=== PATIENT | female | born 1990 | race Caucasian/White ===

== ENCOUNTER 2016-10-03 15:03 | Inpatient (IN) | payer OTHER ==
[~2016-10-03] VITALS: Ht 154.9 cm; Wt 111.9 kg
[2016-10-03 15:10] VITALS: Ht 154.9 cm; Wt 111.9 kg
[2016-10-03 15:18] VITALS: BP 138/87; PULSE 104; RESP 18
[2016-10-03] MEDS ORDERED: PRENAT PO (15:25)
[2016-10-03] MEDS ORDERED: FERR325C PO (15:25)
[2016-10-03] MEDS ORDERED: CALC600T5 PO (15:25)
[2016-10-03 16:35] LABS: ADD SCAN DIFF NO
[2016-10-03 16:38] LABS: BASOPHILS % 0.2 % (0.0-2.0); EOSINOPHILS # 0.1 10^3/ul (0.0-0.5); HEMATOCRIT 37.1 % (37.0-47.0); HEMOGLOBIN 12.4 g/dl (12.0-16.0); LYMPHOCYTES # 1.3 10^3/ul (0.8-2.9); LYMPHOCYTES % 14.3 % (15.0-51.0); MEAN CORPUSCULAR HEMOGLOBIN 27.4 pg (29.0-33.0); MEAN CORPUSCULAR HGB CONC 33.4 g/dl (32.0-37.0); MEAN CORPUSCULAR VOLUME 82.1 fl (82.0-101.0); MEAN PLATELET VOLUME 9.7 fl (7.4-10.4); MONOCYTE # 0.5 10^3/ul (0.3-0.9); MONOCYTES % 5.1 % (0.0-11.0); NEUTROPHIL # 7.1 10^3/ul (1.6-7.5); NEUTROPHILS % 79.1 % (39.0-77.0); PLATELET COUNT 329 10^3/UL (140-415); RED BLOOD COUNT 4.52 10^6/ul (4.20-5.40); RED CELL DISTRIBUTION WIDTH 15.3 % (11.5-14.5)
[2016-10-03 16:47] LABS: ALBUMIN 3.4 g/dl (3.3-4.9); POTASSIUM 4.4 mmol/L (3.5-5.1)
[2016-10-03 16:49] LABS: CREATININE 0.57 mg/dl (0.44-1.00)
[2016-10-03 16:50] LABS: ALBUMIN/GLOBULIN RATIO 0.91; TOTAL PROTEIN 7.1 g/dl (6.1-8.1); URIC ACID 4.7 mg/dl (3.1-7.9)
[2016-10-03 16:51] LABS: CALCIUM 8.8 mg/dl (8.4-10.2)
--- NOTE | 2016-10-03 16:57 | RADRPT ---
PROCEDURE: US OB biophysical profile. CLINICAL INDICATION: decreased movements, preeclampsia TECHNIQUE: Multiple sonographic images of the pelvis were obtained. The images were reviewed on a PACS workstation. COMPARISON: No prior studies are available for comparison. FINDINGS: There is a single viable intrauterine gestation. Cardiac activity is present with 152 beats per min [place]. There is a vertex presentation. The placenta is anterior. There is no evidence of placental abruption. There is a normal amount of amniotic fluid with an ALEXSANDRA = 10.0 cm. Biophysical profile: movement 2/2 tone 2/2. breathing 2/2 ALEXSANDRA 2/2 Total 03/03 RPTAT: AA . IMPRESSION: Normal biophysical profile. . .Desmond Arana MD, MD Date Time Electronically viewed and signed by .Desmond Arana MD, MD on 10/03/2016 16:56 .S/
--- NOTE | 2016-10-03 16:59 | RADRPT ---
PROCEDURE: US OB. CLINICAL INDICATION: Size and dates , preeclampsia TECHNIQUE: Multiple sonographic images of the pelvis and gravid uterus were obtained. The images were reviewed on a PACS workstation. COMPARISON: No prior studies are available for comparison. FINDINGS: There is a single viable intrauterine gestation. Cardiac activity is present with 150 beats per min [place]. There is a vertex presentation. The placenta is anterior. There is no evidence of placental abruption. There is a normal amount of amniotic fluid with an ALEXSANDRA = 10.0 cm. Measurements were made in order to determine age. The results are as follows: BPD =9.2 cm HC =32.7 cm AC =33.1 cm FL =7.3 cm Estimated gestational age of approximately 37 weeks and 2 days based on ultrasound measurements. Clinical age: 37 weeks and 4 days. The estimated date of delivery is 10/22/16, based on ultrasound measurements. The EFW = 3118 g, 47%, based on LMP age. RPTAT: AA IMPRESSION: Single viable intrauterine gestation of approximately 37 weeks and 2 days based on ultrasound measu rements. .Desmond Arana MD, Date Time Electronically viewed and signed by .Desmond Arana MD, on 10/03/2016 16:59 .S/
[2016-10-03 17:40] LABS: ADD UMIC YES; URINE BILIRUBIN (Dip) NEGATIVE (NEGATIVE); URINE BLOOD (Dip) NEGATIVE (NEGATIVE); URINE COLOR LT. YELLOW (YELLOW); URINE GLUCOSE (Dip) NEGATIVE (NEGATIVE); URINE KETONES (Dip) NEGATIVE (NEGATIVE); URINE LEUKOCYTE ESTERASE (Dip) TRACE (NEGATIVE); URINE NITRITE (Dip) NEGATIVE (NEGATIVE); URINE TOTAL PROTEIN (Dip) TRACE (NEGATIVE); URINE UROBILINOGEN (Dip) 0.2 E.U./dL (0.1-1.0)
--- NOTE | 2016-10-03 17:58 | HP ---
Date/Time of Note Date/Time of Note DATE: 10/03/16 TIME: 17:50 OB - History Hx of Present Free Text/Dictation admitted for observation of elevated BP in clinic and 8 lbs weight gain in 2 weeks denies headache , blurred vision and epigastric pain Last Menstrual Period: Jan 14, 2016 Estimated Due Date: Oct 20, 2016 : 3 Para: 0 Spontaneous : 2 Care: Limited Care Obstetrical Complications: Other (possible PIH ) Medical Complications: None Past Family/Social History * Past Medical, Surgical, Family and Obstetric Histories reviewed from chart. Blood Type: O+ Rubella: immune RPR/VDRL: Negative GBS Status: Unknown HBsAG: Negative OB Admission Exam Vital Signs Vital Signs Vital Signs Date Time Temp Pulse Resp B/P Pulse Ox O2 Delivery O2 Flow Rate FiO2 10/03/16 15:18 98.5 104 18 138/87 Room Air Physical Exam HEENT: WNL Heart: Rhythm Normal Lungs: Clear, Equal Abdomen: WNL Extremities: Normal Reflexes: Normal Cervical Dilatation: None Effacement: 0% Station: -3 Membranes: Intact Heart Rate: 140's Accelerations: Accelerations Present Decelerations: No Decelerations Varibility: Marked Contractions on Admission: 6-10 Minutes Apart Last 72 hours Lab Results CBC & BMP 10/03/16 16:20 Liver Function Test 10/03/16 16:20 Alanine Aminotransferase (ALT/SGPT) 27 Albumin 3.4 Alkaline Phosphatase 296 H Aspartate Amino Transf (AST/SGOT) 24 Direct Bilirubin 0.00 Total Protein 7.1 OB Assessment/Plan Other Assessment: possible PIH : patient had blood pressure of 150/90-100 in the clinic Other plan: consulted perinatologist: recommended to obtain 24 hour urine protein and observe BP LAINEY LANDIN MD Oct 03, 2016 17:58
[2016-10-03 17:59] LABS: BACTERIA,URINE MODERATE; SQUAMOUS EPITHELIAL CELL,UR MANY; URINE RBCS 0-2 /HPF (0)
[2016-10-03] MEDS: LACTATED RINGER'S 1,000 ML IV SCH (18:27)
--- NOTE | 2016-10-03 18:35 | TRIAGE ---
OB Triage Datetime Report Generated by CPN: 10/03/2016 18:34 Datetime: 10/03/2016 17:18 Labor Evaluation Frequency: 2-3 Monitor Mode: External Duration (sec)2399: 50-100 Quality: Moderate Pattern: Normal: <= 5 Contractions in 10 Minutes Resting Tone [place]: Relaxed Heart Rate FHR Baseline Rate: 135 Monitor Mode: External US FHR Baseline Changes: No Baseline Change Variability: Moderate 6-25 bpm Accelerations: 15X15 Decelerations: None Category: Category I Pain Assessment Pain Presence: Intermittent Pain Type: Contraction Pain Location: Abdomen Pain Relief Measures: Comfort Measures Pain Assessment Comments: Pt denies feeling pain with contractions, only pressure Datetime: 10/03/2016 16:15 Labor Evaluation Frequency: 1-3 Monitor Mode: External Duration (sec)2399: 50-100 Quality: Mild Pattern: Normal: <= 5 Contractions in 10 Minutes Resting Tone [place]: Relaxed Heart Rate FHR Baseline Rate: 140 Monitor Mode: External US FHR Baseline Changes: No Baseline Change Variability: Moderate 6-25 bpm Accelerations: 15X15 Decelerations: None Category: Category I Pain Assessment Pain Presence: Intermittent Pain Type: Contraction; Pressure Pain Location: Abdomen Pain Relief Measures: Comfort Measures Pain Assessment Comments: Pt states feeling "pressure" with contractions, denies pain Datetime: 10/03/2016 15:46 Labor Evaluation Frequency: 1-3 Monitor Mode: External Duration (sec)2399: 50-90 Quality: Mild Pattern: Normal: <= 5 Contractions in 10 Minutes Resting Tone [place]: Relaxed Heart Rate FHR Baseline Rate: 140 Monitor Mode: External US FHR Baseline Changes: No Baseline Change Variability: Moderate 6-25 bpm Accelerations: 15X15 Decelerations: None Category: Category I Pain Assessment Pain Presence: Intermittent Pain Type: Contraction Pain Location: Abdomen Pain Relief Measures: Comfort Measures Pain Assessment Comments: Pt denies feeling pain with contractions, only stating she feels "some p ressure". Datetime: 10/03/2016 15:40 Vaginal Exam Dilatation (cms): 0.5 Effacement (%): 30 Station: -3 Exam By: Estela RN Datetime: 10/03/2016 15:16 Time of Arrival: 10/03/2016 15:00 EGA: 37.4 Arrived By: Ambulatory Arrived From: Dr. King Chief Complaint: R/O PIH for elevated BPs in clinic Movement: Present Contractions: Irregular Rupture of Membranes: Denies Vaginal Bleeding: Normal Show Vaginal Discharge: Denies Recent Sexual Intercouse: Denies Abdominal Trauma: Not Applicable Patient Complaints: None Time Provider Notified: 10/03/2016 16:06 Provider Notified: Riki Initial Plan: NST, PIH labs, BPP/ALEXSANDRA/EFW Datetime: 10/03/2016 15:15 Assessment Type: Triage Maternal Assessment Level of Consciousness: Fully Conscious DTR's/Clonus: DTRs 2+; No Clonus Headache: Denies Blurred Vision: No Respiratory Effort: Unlabored; Regular Rhythm; Equal Expansion Breath Sounds, Left: Clear and Equal Breath Sounds, Right: Clear and Equal Nausea/Vomiting: Denies RUQ Epigastric Pain: Denies Lower Extremities Edema: Bilateral Lower Extremities Degree: 1+ Upper Extremities Edema: Bilateral Upper Extremities Degree: 1+ Facial Edema: None Fall Risk Assessment History of Falling: (0) No Secondary Diagnosis: (0) No Ambulatory Aid: (0) Bedrest/Nurse Assist IV Therapy: (0) No Gait: (0) Normal/Bedrest/Immobile Mental Status: (0) Oriented to Own Ability Fall Score: 0 Fall Risk Score Definition: No Risk: No action required Datetime: 10/03/2016 15:05 Stage of : OB Triage
[2016-10-04] MEDS: LACTATED RINGER'S 1,000 ML IV SCH (06:36)
[2016-10-04] MEDS ORDERED: FERROUS SULFATE (EC) 325 MG TAB PO SCH (09:00)
[2016-10-04] MEDS ORDERED: MULTIVIT/MIN/FOLATE/IRON/PREN TAB PO SCH (09:00)
--- NOTE | 2016-10-04 11:00 | NSTRPT ---
NST Information Datetime Report Generated by CPN: 10/04/2016 11:00 Datetime: 10/03/2016 08:56 NST Information EGA: 37.4 Test Number: 5 Time on Monitor: 10/03/2016 09:32 Time off Monitor: 10/03/2016 10:16 NST Duration (Min): 44 Reason for NST: Gestational Hypertension Test and Monitor Explained: Monitor Explained; Test Explained; Verbalized Understanding Pulse: 84 Resp: 18 SBP: 123 DBP: 82 Test Evaluation NST Interventions: Reposition Patient Patient States Movement: Present Contraction Frequency: none FHR Baseline : 135 Variability: Moderate 6-25bpm Accelerations: 15X15 Decelerations: None FHR Category: Category I NST Results: Reactive Comments: To u/s, ALEXSANDRA 14.5, cephalic strip reviewed by Dr. Hurtado prior to pt discharge home. 1019-Pt home undelivered with labor precautions, kick count instructions reviewed and follo w up NST appt given. States understanding and denies further questions at this time. Electronically Signed By E-Signature: with User ID: [id number] Datetime: 09/30/2016 08:11 NST Information EGA: 37.1 NST Duration (Min): 31 Datetime: 09/26/2016 08:53 NST Information EGA: 36.4 NST Duration (Min): 30 Datetime: 09/23/2016 10:27 NST Information EGA: 36.1 NST Duration (Min): 27 Datetime: 09/16/2016 14:31 NST Information EGA: 35.1 Datetime: 09/16/2016 14:25 NST Duration (Min): 28
--- NOTE | 2016-10-04 17:42 | DS ---
Date/Time of Note Date/Time of Note DATE: 10/04/16 TIME: 17:40 Obstetrical Discharge Record Final Diagnosis Final Diagnosis: Term not delivered Other Final Diagnosis possible PIH Complications Preg induced Hypertension (posssible ) Condition on Discharge Physical Assessment Voiding: Yes Bowel Movement: Yes Breast: Soft, non-tender, Filling Fundus: Other (ravid ) Abdomen and Incision: Soft and gravid Episiotomy: NA Calf Tenderness: No Patient Condition: Good (Patient with decreased BPs : 24 hr urine collection in process; will follow patient on bed + pelvic rest and revisit to Ob Triage in 2 days ) LAINEY LANDIN MD Oct 04, 2016 17:42
--- NOTE | 2016-10-04 17:45 | PD.PPDC ---
QUOTATION CLERK Discharge Instruction Provider Information Physician Information 26 y/o female was admitted to R/O PIH: over 24 hr observation BPs decreased and 24 hour urione results remains pending Diagnosis Final Diagnosis: possible PIH Condition Patient Condition: Good (Patient with decreased BPs : 24 hr urine collection in process; will follow patient on bed + pelvic rest and revisit to Ob Triage in 2 days ) Diet Diet: Resume Regular Diet Activity/Restrictions Activity: Bedrest May Shower Restrictions: Nothing in the Vagina Follow-up Follow-up with Physician: 2, Day/Days (in [place] for F/U ) Return to clinic for OB Instructions: Blurried Vision Headache (and epigastric pain ) LAINEY LANDIN MD Oct 04, 2016 17:45
[2016-10-04 18:54] LABS: SCRET 0.57 mg/dl (0.44-1.00)
== END 2016-10-04 18:20 | disposition home or self-care (01) | DRG 782 ==
LOC: OBT 15:03 → L-D 15:04 → OBG 18:00 → OBT 18:00
PROVIDERS: ADMIT Obstetrics & Gynecology; ATTEND Obstetrics & Gynecology
DX: O13.3 Gestational [pregnancy-induced] hypertension without significant proteinuria, third trimester (principal); Z3A.37 37 weeks gestation of pregnancy
CPT/HCPCS: 36415; 76815; 76818; 80053; 81001; 81003; 82575; 84156; 84560; 85025; G0463; J7120

== ENCOUNTER 2016-10-06 12:05 | Inpatient (IN) | payer OTHER ==
[~2016-10-06 12:05] MED LIST: CALC600T5 PO; FERR325C PO; PRENAT PO
[2016-10-06] MEDS ORDERED: MISOPROSTOL 200 MCG TAB PR PRN (14:30)
[2016-10-06] MEDS ORDERED: OXYTOCIN 30 UNITS/LR 500 ML IV SCH ×2 (14:30)
[2016-10-06] MEDS ORDERED: BUTORPHANOL 2 MG INJ IV PRN ×2 (14:30)
[2016-10-06] MEDS ORDERED: LACTATED RINGER'S 1,000 ML IV PRN (14:30)
[2016-10-06] MEDS ORDERED: LIDOCAINE 1% (MPF) 30 ML INJ INJ PRN (14:30)
[2016-10-06] MEDS ORDERED: CARBOPROST 250 MCG INJ IM PRN (14:30)
[2016-10-06] MEDS ORDERED: OXYTOCIN 30 UNITS/LR 500 ML IV PRN (14:30)
[2016-10-06] MEDS ORDERED: METHYLERGONOVINE 0.2 MG INJ IM PRN (14:30)
[2016-10-06] MEDS: LACTATED RINGER'S 1,000 ML IV SCH (15:59)
[2016-10-06 16:20] LABS: ADD SCAN DIFF NO
[2016-10-06 16:23] LABS: BASOPHILS % 0.3 % (0.0-2.0); EOSINOPHILS # 0.1 10^3/ul (0.0-0.5); EOSINOPHILS % 1.3 % (0.0-7.0); HEMATOCRIT 36.9 % (37.0-47.0); HEMOGLOBIN 12.4 g/dl (12.0-16.0); LYMPHOCYTES # 1.3 10^3/ul (0.8-2.9); LYMPHOCYTES % 12.2 % (15.0-51.0); MEAN CORPUSCULAR HEMOGLOBIN 27.6 pg (29.0-33.0); MEAN CORPUSCULAR HGB CONC 33.6 g/dl (32.0-37.0); MEAN PLATELET VOLUME 9.7 fl (7.4-10.4); MONOCYTE # 0.4 10^3/ul (0.3-0.9); MONOCYTES % 3.6 % (0.0-11.0); NEUTROPHIL # 8.6 10^3/ul (1.6-7.5); NEUTROPHILS % 82.3 % (39.0-77.0); PLATELET COUNT 302 10^3/UL (140-415); RED CELL DISTRIBUTION WIDTH 15.4 % (11.5-14.5); WHITE BLOOD COUNT 10.4 10^3/ul (4.8-10.8)
[2016-10-06 16:35] LABS: INR 0.88; PROTIME 11.9 Sec (12.2-14.2); PT RATIO 0.9
[2016-10-06 16:36] LABS: PARTIAL THROMBOPLASTIN TIME 23.6 Sec (25.0-35.0)
[2016-10-06] MEDS ORDERED: DINOPROSTONE 10 MG VAG SUPP VAG ONE (17:00)
[2016-10-06] MEDS ORDERED: AMPICILLIN 2 GM/NS (PMX) 100 ML IV ONE (17:00)
[2016-10-06] MEDS: AMPICILLIN 1 GM/NS (PMX) 50 ML IV SCH (20:58)
[2016-10-07] MEDS: AMPICILLIN 1 GM/NS (PMX) 50 ML IV SCH ×6 (01:04→20:57)
[2016-10-07] MEDS: LACTATED RINGER'S 1,000 ML IV SCH ×3 (01:05→18:44)
--- NOTE | 2016-10-07 16:29 | HP ---
Date/Time of Note Date/Time of Note DATE: 10/07/16 TIME: 16:26 OB - History Hx of Present Free Text/Dictation admitted for induction of the labor at 38 weeks because of persistent elevation of BPs Chief Complaint: denied H/A, B/V, or E/P Last Menstrual Period: Jan 14, 2016 Estimated Due Date: Oct 20, 2016 : 2 Para: 0 Spontaneous : 1 Care: Good Care Ultrasounds: Normal mid trimester US Obstetrical Complications: Gestational Hypertension Medical Complications: None Past Family/Social History * Past Medical, Surgical, Family and Obstetric Histories reviewed from chart. Blood Type: O+ Rubella: immune RPR/VDRL: Negative GBS Status: Unknown HBsAG: Negative OB Admission Exam Vital Signs Vital Signs see nurses notes Physical Exam HEENT: WNL Heart: Rhythm Normal Lungs: Clear, Equal Abdomen: WNL Extremities: Normal Reflexes: Normal Cervical Dilatation: None Effacement: 0% Station: -3 Membranes: Intact Heart Rate: 140's Accelerations: Accelerations Present Decelerations: No Decelerations Varibility: Moderate Contractions on Admission: None Last 72 hours Lab Results CBC & BMP 10/06/16 16:00 OB Assessment/Plan Reason for admission: induction of labor Other Assessment: PIH at 38 weeks Induction Method: per Misoprostol Protocol LAINEY LANDIN MD Oct 07, 2016 16:29
--- NOTE | 2016-10-07 19:35 | PN ---
Date/Time of Note Date/Time of Note DATE: 10/07/16 TIME: 19:33 OB Subjective Subjective Subjective NO C/O H/A B/V or E/P OB Objective Objective Objective VSS P/E: unchanged OB Assessment/Plan Reason for admission: induction of labor Other Assessment: PIH at 38 weeks Induction Method: per Misoprostol Protocol (continue with mesoprostol) LAINEY LANDIN MD Oct 07, 2016 19:35
[2016-10-07] MEDS ORDERED: DINOPROSTONE 10 MG VAG SUPP VAG ONE (20:00)
[2016-10-07] MEDS ORDERED: LABETALOL HCL 20MG INJ IV ONE (20:50)
[2016-10-07] MEDS ORDERED: LABETALOL HCL 20MG INJ ONE (20:52)
[2016-10-07] MEDS: LABETALOL 200 MG TAB PO SCH (21:02)
[2016-10-07] MEDS ORDERED: LABETALOL 200 MG TAB PO SCH (22:00)
[2016-10-08] MEDS: AMPICILLIN 1 GM/NS (PMX) 50 ML IV SCH ×6 (01:06→20:32)
[2016-10-08] MEDS: LACTATED RINGER'S 1,000 ML IV SCH ×3 (04:23→16:11)
[2016-10-08] MEDS ORDERED: NALOXONE (0.4 MG/ML) INJ IV PRN (09:00)
[2016-10-08] MEDS ORDERED: DIPHENHYDRAMINE 50 MG INJ IV PRN (09:00)
[2016-10-08] MEDS: LABETALOL 200 MG TAB PO SCH ×2 (09:23→20:34)
[2016-10-08] MEDS: ONDANSETRON 4 MG INJ IV PRN ×2 (13:18→22:18)
[2016-10-08] MEDS ORDERED: MINERAL OIL LIGHT 10 ML VIAL TOP ONE (18:00)
[2016-10-08] MEDS: FENTAnyl 2MCG/ML-ROPIV 0.2% 100 ML BAG EPI SCH (19:24)
--- NOTE | 2016-10-08 20:31 | PN ---
Date/Time of Note Date/Time of Note DATE: 10/08/16 TIME: 20:27 OB Subjective Subjective Subjective C/O labor pains: has Epidural OB Objective Objective Objective VSS Cx: % 50 1-2 cm AROM: Clear: will start om Pitocin LAINEY LANDIN MD Oct 08, 2016 20:31
[2016-10-08] MEDS ORDERED: OXYTOCIN 30 UNITS/LR 500 ML IV SCH (22:30)
[2016-10-09] MEDS: LACTATED RINGER'S 1,000 ML IV SCH ×3 (00:54→09:06)
[2016-10-09] MEDS: AMPICILLIN 1 GM/NS (PMX) 50 ML IV SCH ×5 (00:54→17:00)
[2016-10-09] MEDS: FENTAnyl 2MCG/ML-ROPIV 0.2% 100 ML BAG EPI SCH ×2 (04:32→09:47)
[2016-10-09] MEDS: ONDANSETRON 4 MG INJ IV PRN (07:58)
--- NOTE | 2016-10-09 14:39 | LDN ---
Date/Time of Note Date/Time of Note DATE: 10/09/16 TIME: 14:33 Delivery Summary of a viable over intact perineum Placenta Delivered: Spontaneously, Intact & Complete Meconium: none Perineum intact?: No Perineal laceration: 1 Perineal laceration repair: 1st degree perineal laceration was repaired in layers with 2 0 Vicryl and 2 0 Chromic Anesthesia type: Epidural Estimated blood loss: 300 Sponge & Needle done & correct: Yes All needle counts correct: Yes Any foreign bodies felt in the: No Problems: Delivery Information Sex Infant Sex: male Apgars 1 Minute: 8 5 Minute: 9 Suctioning Nose & mouth suctioned at sandeep: Yes Delee suction performed: No Umbilical Cord Umbilical cord with: 3 Vessels Cord presentations: nuchal cord Nuchal cord present X: 1 Cord Blood was obtained: Yes Mother & Baby Disposition Disposition Mom & Baby to Maternity; Good: Yes (mother and baby were recovered in good condition ) Mom transferred to: Other (maternity ) Baby to NICU: No LAINEY LANDIN MD Oct 09, 2016 14:39
[2016-10-09] MEDS ORDERED: ACETAMINOPHEN/CODEINE #3 TAB PO ONE (15:00)
[2016-10-09 16:40] VITALS: BP 123/71; PULSE 86; RESP 19
[2016-10-09] MEDS ORDERED: MISOPROSTOL 200 MCG TAB PR PRN (17:30)
[2016-10-09] MEDS ORDERED: CARBOPROST 250 MCG INJ IM PRN (17:30)
[2016-10-09] MEDS ORDERED: BENZOCAINE 20% 56 ML SPRAY TOP PRN (17:30)
[2016-10-09] MEDS ORDERED: WITCH HAZEL/GLYCERIN PAD PR PRN (17:30)
[2016-10-09] MEDS ORDERED: METHYLERGONOVINE 0.2 MG INJ IM PRN (17:30)
[2016-10-09] MEDS ORDERED: DIBUCAINE 1% 30 GM OINT PR PRN (17:30)
[2016-10-09] MEDS ORDERED: ACETAMINOPHEN/CODEINE #3 TAB PO PRN ×2 (17:30)
[2016-10-09] MEDS ORDERED: OXYTOCIN 30 UNITS/LR 500 ML IV PRN (17:30)
[2016-10-09] MEDS ORDERED: ZOLPIDEM 5 MG TAB PO PRN (17:30)
[2016-10-09] MEDS ORDERED: LANOLIN 7 GM TUBE TOP PRN (17:30)
[2016-10-09] MEDS: CEPHALEXIN 500 MG CAP PO SCH (17:46)
[2016-10-09] MEDS: IBUPROFEN 600 MG TAB PO SCH (17:47)
[2016-10-09] MEDS: LACTATED RINGER'S 1,000 ML IV* SCH (19:38)
[2016-10-09 20:20] VITALS: BP 114/52; PULSE 108; RESP 18
[2016-10-09] MEDS: MAGNESIUM HYDROXIDE 30ML CUP PO SCH (21:06)
[2016-10-09] MEDS: SENNA/DOCUSATE NA (8.6MG/50MG) TAB PO SCH (21:06)
[2016-10-10 00:10] VITALS: BP 127/62; RESP 20
[2016-10-10] MEDS: CEPHALEXIN 500 MG CAP PO SCH ×4 (00:14→17:57)
[2016-10-10] MEDS: IBUPROFEN 600 MG TAB PO SCH ×4 (00:14→17:57)
[2016-10-10] MEDS: LACTATED RINGER'S 1,000 ML IV* SCH ×2 (01:09→09:06)
[2016-10-10 04:30] VITALS: BP 116/52; PULSE 94; RESP 16
[2016-10-10 07:59] LABS: ADD SCAN DIFF NO
[2016-10-10 08:15] VITALS: BP 105/54; PULSE 97; RESP 17
[2016-10-10 08:15] LABS: BASOPHILS % 0.3 % (0.0-2.0); EOSINOPHILS # 0.2 10^3/ul (0.0-0.5); EOSINOPHILS % 1.4 % (0.0-7.0); HEMATOCRIT 31.5 % (37.0-47.0); HEMOGLOBIN 10.2 g/dl (12.0-16.0); LYMPHOCYTES # 1.4 10^3/ul (0.8-2.9); LYMPHOCYTES % 11.9 % (15.0-51.0); MEAN CORPUSCULAR HEMOGLOBIN 27.3 pg (29.0-33.0); MEAN CORPUSCULAR HGB CONC 32.4 g/dl (32.0-37.0); MEAN CORPUSCULAR VOLUME 84.2 fl (82.0-101.0); MEAN PLATELET VOLUME 9.8 fl (7.4-10.4); MONOCYTE # 0.6 10^3/ul (0.3-0.9); MONOCYTES % 5.4 % (0.0-11.0); NEUTROPHIL # 9.2 10^3/ul (1.6-7.5); NEUTROPHILS % 80.4 % (39.0-77.0); PLATELET COUNT 251 10^3/UL (140-415); RED BLOOD COUNT 3.74 10^6/ul (4.20-5.40); RED CELL DISTRIBUTION WIDTH 15.9 % (11.5-14.5); WHITE BLOOD COUNT 11.5 10^3/ul (4.8-10.8)
[2016-10-10] MEDS: SENNA/DOCUSATE NA (8.6MG/50MG) TAB PO SCH ×2 (09:00→21:00)
[2016-10-10] MEDS: MAGNESIUM HYDROXIDE 30ML CUP PO SCH ×2 (09:00→21:00)
[2016-10-10 15:45] VITALS: BP 120/66; PULSE 78; RESP 17
--- NOTE | 2016-10-10 16:05 | DS ---
Date/Time of Note Date/Time of Note home next da DATE: 10/10/16 TIME: 16:04 Obstetrical Discharge Record Final Diagnosis Final Diagnosis: Term delivered Other Final Diagnosis S/P vaginal delivery Vaginal Delivery Obstetrical Delivery: Spontaneous, Laceration, Repaired Complications Augmentation: Yes Induction: Yes Condition on Discharge Physical Assessment Last Vitals: see nurses notes Voiding: Yes Bowel Movement: Yes Breast: Soft, non-tender, Filling Fundus: Firm Abdomen and Incision: soft BS + Episiotomy: NA perineum: healing Calf Tenderness: No Patient Condition: Good LAINEY LANDIN MD Oct 10, 2016 16:05
--- NOTE | 2016-10-10 16:07 | PD.PPDC ---
VISUAL ARTIST Discharge Instruction Provider Information Physician Information 26 y/o female had vaginal delivery Diagnosis Final Diagnosis: S/P vaginal delivery Condition Patient Condition: Good Diet Diet: Resume Regular Diet Activity/Restrictions Activity: Normal Activity May Shower Restrictions: Nothing in the Vagina Return to Work or School: November 24, 2016 Follow-up Follow-up with Physician: 4, Week/Weeks (in clinic) Return to clinic for OB Instructions: Breast Tenderness Depression Blurried Vision Headache LAINEY LANDIN MD Oct 10, 2016 16:07
[2016-10-10] MEDS ORDERED: IBUP-1542 PO (16:08)
[2016-10-10 20:20] VITALS: BP 129/85; PULSE 88; RESP 20
[2016-10-11] MEDS: CEPHALEXIN 500 MG CAP PO SCH ×3 (00:07→12:57)
[2016-10-11] MEDS: IBUPROFEN 600 MG TAB PO SCH ×3 (00:07→12:54)
[2016-10-11 04:10] VITALS: BP 131/70; RESP 18
[2016-10-11 07:40] LABS: ADD SCAN DIFF NO
[2016-10-11 07:48] LABS: BASOPHILS % 0.4 % (0.0-2.0); EOSINOPHILS # 0.2 10^3/ul (0.0-0.5); EOSINOPHILS % 2.5 % (0.0-7.0); HEMATOCRIT 31.1 % (37.0-47.0); HEMOGLOBIN 10.1 g/dl (12.0-16.0); LYMPHOCYTES # 1.6 10^3/ul (0.8-2.9); LYMPHOCYTES % 17.2 % (15.0-51.0); MEAN CORPUSCULAR HEMOGLOBIN 27.4 pg (29.0-33.0); MEAN CORPUSCULAR HGB CONC 32.5 g/dl (32.0-37.0); MEAN CORPUSCULAR VOLUME 84.3 fl (82.0-101.0); MONOCYTE # 0.5 10^3/ul (0.3-0.9); MONOCYTES % 5.3 % (0.0-11.0); NEUTROPHIL # 6.8 10^3/ul (1.6-7.5); NEUTROPHILS % 74.1 % (39.0-77.0); PLATELET COUNT 243 10^3/UL (140-415); RED BLOOD COUNT 3.69 10^6/ul (4.20-5.40); RED CELL DISTRIBUTION WIDTH 16.2 % (11.5-14.5); WHITE BLOOD COUNT 9.2 10^3/ul (4.8-10.8)
[2016-10-11] MEDS: SENNA/DOCUSATE NA (8.6MG/50MG) TAB PO SCH (09:00)
[2016-10-11] MEDS ORDERED: VARICELLA VACCINE LIVE/PF 1,350 UNIT/0.5 ML ML SC* ONE (09:00)
[2016-10-11] MEDS ORDERED: DIPHTH/TET/ACEL PERTUSS (ADULT) 0.5 ML VIAL IM* ONE (09:00)
[2016-10-11] MEDS ORDERED: MEASLES,MUMPS,RUBELLA VACCINE INJ SC* ONE (09:00)
[2016-10-11] MEDS: MAGNESIUM HYDROXIDE 30ML CUP PO SCH (09:00)
[2016-10-11 09:20] VITALS: BP 124/59; PULSE 93; RESP 18
== END 2016-10-11 16:58 | disposition home or self-care (01) | DRG 775 ==
LOC: OBT 12:05 → L-D 12:05 → OBT 14:10 → L-D 14:11 → PP1 10-09 16:35
PROVIDERS: ADMIT Obstetrics & Gynecology; ATTEND Obstetrics & Gynecology
PROC: 10E0XZZ Delivery of Products of Conception, External Approach (ICD-10-PCS; principal; 2016-10-09)
PROC: 0HQ9XZZ Repair Perineum Skin, External Approach (ICD-10-PCS; 2016-10-09)
DX: O99.214 Obesity complicating childbirth (principal); E66.9 Obesity, unspecified; O13.4 Gestational [pregnancy-induced] hypertension without significant proteinuria, complicating childbirth; O69.81X0 Labor and delivery complicated by cord around neck, without compression, not applicable or unspecified; O70.0 First degree perineal laceration during delivery; Z3A.38 38 weeks gestation of pregnancy; Z37.0 Single live birth
CPT/HCPCS: 62319; 85025; 85610; 85730; 86592; 86900; 86901; 90715; 90716; 99464; G0463; J0290; J2405; J2590; J3010; J7120